=== PATIENT | male | born 2000 | race Two or more races ===

== ENCOUNTER 2020-07-02 22:44 | Inpatient (IN) | payer OTHER ==
[2020-07-02] MEDS ORDERED: SODIUM CHLORIDE 0.9% 500 ML 500 ML IV ONE (23:16)
--- NOTE | 2020-07-02 23:29 | XR ---
EXAMINATION TYPE: XR abdomen acute w cxr DATE OF EXAM: 07/02/2020 COMPARISON: NONE HISTORY: Diarrhea. Cough. TECHNIQUE: 4 views FINDINGS: There is increased density in the left lower lobe consistent with a mild pneumonia. Heart s ize is normal. There is no pleural effusion. There is no sign of intestinal obstruction or pneumoperitoneum. Fecal pattern is normal. There is no evidence of a mass. There are no pathologic calcifications over the kidneys. Bony structures are inta ct. 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 IMPRESSION: Nonacute abdomen. There is evidence for some mild pneumonia in the left lower lobe.
[2020-07-02] MEDS ORDERED: ONDANSETRON 4 MG/2 ML VIAL IVP STA (23:35)
[2020-07-03] MEDS ORDERED: ACETAMINOPHEN IV (For NPO) 1,000 MG in EMPTY BAG 1 BAG IVPB ONE
--- NOTE | 2020-07-03 | CT ---
EXAMINATION TYPE: CT brain wo con DATE OF EXAM: 07/02/2020 COMPARISON: None HISTORY: headache CT DLP: 1188.4 mGycm Automated exposure control for dose reduction was used. There is slight prominence of the temporal horns of the lateral ventricles for the patient's relative ly young age. There is no mass effect nor midline shift. There is no sign of intracranial hemorrhage. The calvarium is intact. Skull base is intact. There is incomplete pneumatization of the mastoid sin uses. IMPRESSION: Ventricles overall have normal size but there is some prominence of the temporal horns of the lateral ventricles. Clinical significance is not clear. No evidence of cerebral edema. No acute intracranial abnormality.
[2020-07-03] MEDS ORDERED: cefTRIAXone 1,000 MG VIAL (IM USE) IM STA (00:04)
[2020-07-03] MEDS ORDERED: AZITHROMYCIN 1,200 MG/30 ML BOTTLE PO ONE (00:15)
[2020-07-03] MEDS ORDERED: AZITHROMYCIN 500 MG in SODIUM CHLORIDE 0.9% 250 ML IVPB ONE ×3 (01:00)
[2020-07-03 01:05] LABS: ALT 22 U/L (4-49); AST 41 U/L (17-59); African American GFR (CKD) >90 (>60 ml/min/1.73 sqM); Albumin 4.1 g/dL (3.5-5.0); Alkaline Phosphatase 63 U/L (38-126); Anion Gap 11 mmol/L; Blood Urea Nitrogen 16 mg/dL (9-20); Calcium 8.8 mg/dL (8.4-10.2); Carbon Dioxide 25 mmol/L (22-30); Chloride 99 mmol/L (98-107); Glucose 100 mg/dL (74-99); Non-African American GFR(CKD) >90 (>60 ml/min/1.73 sqM); Potassium 4.2 mmol/L (3.5-5.1); Sodium 135 mmol/L (137-145); Total Bilirubin 0.6 mg/dL (0.2-1.3); Total Protein 7.7 g/dL (6.3-8.2)
[2020-07-03 01:09] LABS: HCT 51.9 % (39.0-53.0); HGB 16.8 gm/dL (13.0-17.5); MCHC 32.4 g/dL (31.0-37.0); MCV 92.6 fL (80.0-100.0); Mean Platelet Volume 8.2; Platelet Count 224 k/uL (150-450); RDW 13.6 % (11.5-15.5); WBC 3.9 k/uL (3.8-10.6)
[2020-07-03] MEDS ORDERED: IPRATROPIUM-ALBUTEROL 3 ML NEB INHALATION STA (01:23)
[2020-07-03] MEDS: SODIUM CHLORIDE 0.9% 1,000 ML IV SCH ×3 (01:58→16:55)
[2020-07-03 02:00] LABS: Nucleated Red Blood Cells 0 /100 WBC (0-0)
[2020-07-03 02:04] LABS: Band Neutrophils % 12 %; Lymphocytes # (M) 1.21 k/uL (1.0-4.8); Monocytes # (M) 0.47 k/uL (0-1.0); Neutrophils % (M) 46 %; Total Cells Counted 200
[2020-07-03 02:05] LABS: Anisocytosis (M) Present; Polychromasia Present
[2020-07-03 02:09] LABS: Large Platelets Present
--- NOTE | 2020-07-03 03:16 | ED ---
General Adult HPI - General Chief complaint: Nausea/Vomiting/Diarrhea Stated complaint: abd pain,headache Time Seen by Provider: 07/02/20 23:09 Source: patient, RN notes reviewed, old records reviewed Mode of arrival: ambulatory Limitations: no limitations - History of Present Illness Initial comments: 19-year-old male patient passed history of Down syndrome parents ED for evaluation nausea vomiting diarrhea headache cough for the last 3 days. Denies any fevers. Denies any other complaints. History taking otherwise limited. - Related Data Allergies Allergy/AdvReac Type Severity Reaction Status Date / Time No Known Allergies Allergy Verified 07/02/20 23:06 Review of Systems ROS Statement: Those systems with pertinent positive or pertinent negative responses have been documented in the HPI. ROS Other: All systems not noted in ROS Statement are negative. Past Medical History Past Medical History: Pneumonia Additional Past Medical History / Comment(s): Right eye fluid, down syndrome History of Any Multi-Drug Resistant Organisms: None Reported Past Surgical History: Adenoidectomy, Ear Surgery, Tonsillectomy Past Anesthesia/Blood Transfusion Reactions: No Reported Reaction Past Psychological History: No Psychological Hx Reported Smoking Status: Never smoker Past Alcohol Use History: None Reported Past Drug Use History: None Reported General Exam - General Exam Comments Initial Comments: Constitutional: NAD, Pt has pleasant affect. HEENT: NC/AT, trachea midline, neck supple, no lymphadenopathy. Posterior pharynx non erythematous, without exudates. External ears appear normal, without discharge. Mucous membranes moist. Eyes PERRLA, EOM intact. There is no scleral icterus. No pallor noted. Cardiopulmonary: RRR, no murmurs, rubs or gallops, no JVD noted. Left -sided ra les are noted. Lungs otherwise clear. No peripheral edema. Abdominal exam: Abdomen soft and non-distended. Abdomen non-tender to palpation in all 4 quadrants. Bowel sounds active in LLQ. No hepatosplenomegaly. No ecchymosis Neuro: CN II-XII intact. No nuchal rigidity. No raccon eyes, no rosenberg sign, no hemotympanum. No cervical spinal tenderness. MSK: No posterior calf tenderness bilaterally, homans sign negative bilaterally. Posterior tibialis and radial pulse +2 bilaterally. Sensation intact in upper and lower extremities. Full active ROM in upper and lower extremities, 5/5 stregnth. Limitations: no limitations Course Vital Signs 07/02/20 07/03/20 07/03/20 22:58 00:53 02:08 Temperature 99.0 F 98.8 F Pulse Rate 127 H 120 H 105 H Respiratory 18 18 Rate Blood Pressure 118/74 127/89 O2 Sat by Pulse 91 L 93 L 90 L Oximetry 07/03/20 07/03/20 07/03/20 02:09 02:14 02:28 Temperature Pulse Rate 100 100 Respiratory Rate Blood Pressure O2 Sat by Pulse 94 L Oximetry 07/03/20 02:32 Temperature Pulse Rate 100 Respiratory 17 Rate Blood Pressure 120/68 O2 Sat by Pulse 93 L Oximetry Medical Decision Making - Medical Decision Making 19-year-old male patient presents ED for evaluation nausea vomiting diarrhea cough last 3 days. Patient vital signs display mild hypoxia, distal exam is fully right-sided rales. Laboratory investigations revealed no leukocytosis. CT negative for any acute intracranial abnormality. Acute abdomen series displayed mild pneumonia left lower lobe. Patient initiated on Rocephin is administered. Color test pending will be admitted. Case discussed with Dr. James. - Lab Data Result diagrams: 07/03/20 00:42 07/03/20 00:42 Lab Results 07/03/20 07/03/20 Range/Units 00:42 00:42 WBC 3.9 (3.8-10.6) k/uL RBC 5.60 (4.30-5.90) m/uL Hgb 16.8 (13.0-17.5) gm/dL Hct 51.9 (39.0-53.0) % MCV 92.6 (80.0-100.0) fL MCH 30.0 (25.0-35.0) pg MCHC 32.4 (31.0-37.0) g/dL RDW 13.6 (11.5-15.5) % Plt Count 224 (150-450) k/uL Neutrophils % Not Reportable Neutrophils % (Manual) 46 % Band Neuts % (Manual) 12 % Lymphocytes % Not Reportable Lymphocytes % (Manual) 31 % Monocytes % Not Reportable Monocytes % (Manual) 12 % Eosinophils % Not Reportable Basophils % Not Reportable Neutrophils # Not Reportable Neutrophils # (Manual) 2.20 (1.3-7.7) k/uL Lymphocytes # Not Reportable Lymphocytes # (Manual) 1.21 (1.0-4.8) k/uL Monocytes # Not Reportable Monocytes # (Manual) 0.47 (0-1.0) k/uL Eosinophils # Not Reportable Basophils # Not Reportable Nucleated RBCs 0 (0-0) /100 WBC Manual Slide Review Performed Large Platelets Present Polychromasia Present Anisocytosis (manual) Present Sodium 135 L (137-145) mmol/L Potassium 4.2 (3.5-5.1) mmol/L Chloride 99 (98-107) mmol/L Carbon Dioxide 25 (22-30) mmol/L Anion Gap 11 mmol/L BUN 16 (9-20) mg/dL Creatinine 0.87 (0.66-1.25) mg/dL Est GFR (CKD-EPI)AfAm >90 (>60 ml/min/1.73 sqM) Est GFR (CKD-EPI)NonAf >90 (>60 ml/min/1.73 sqM) Glucose 100 H (74-99) mg/dL Calcium 8.8 (8.4-10.2) mg/dL Total Bilirubin 0.6 (0.2-1.3) mg/dL AST 41 (17-59) U/L ALT 22 (4-49) U/L Alkaline Phosphatase 63 (38-126) U/L Total Protein 7.7 (6.3-8.2) g/dL Albumin 4.1 (3.5-5.0) g/dL - EKG Data -: EKG Interpreted by Me (and Dr. James ) EKG Comments: Ventricular rate 105, WI interval 138, QRS 78, QT/QTc 318/420. Sinus tachycardia, otherwise normal EKG. No concern for acute ischemia at this time. Disposition Clinical Impression: Pneumonia, Headache Disposition: ADMITTED IP TO THIS HOSP Condition: Serious Is patient prescribed a controlled substance at d/c from ED?: No
[2020-07-03 08:01] LABS: Appearance,Urine Clear (Clear); Bilirubin,Urine Negative (Negative); Blood,Urine Small (Negative); Color,Urine Yellow; Glucose,Urine (UA) Negative (Negative); Ketones,Urine 3+ (Negative); Leukocyte Esterase,Urine Negative (Negative); Mucus,Urine Few /hpf; Nitrite,Urine Negative (Negative); Protein,Urine 2+ (Negative); RBC,Urine 1 /hpf (0-5); Specific Gravity,Urine 1.039 (1.001-1.035); Urobilinogen,Urine <2.0 mg/dL (<2.0); WBC,Urine 4 /hpf (0-5)
--- NOTE | 2020-07-03 13:05 | XR ---
EXAMINATION TYPE: XR chest 1V portable DATE OF EXAM: 07/03/2020 Comparison: 07/02/2020 Clinical History: 19-year-old male pneumonia Findings: Heart normal size. Multifocal patchy opacities are present especially in the left greater than right mid and lower lungs. Impression: Patchy left greater than right infiltrates similar to yesterday could represent multifocal pneumonia or atypical pneumonias.
[2020-07-03] MEDS ORDERED: IPRATROPIUM-ALBUTEROL 3 ML NEB INHALATION PRN (15:03)
[2020-07-03] MEDS ORDERED: FUROSEMIDE 10 MG/ML 2 ML VIAL IV STA (15:05)
[2020-07-03 15:27] LABS: C Reactive Protein 54.2 mg/L (<10.0)
--- NOTE | 2020-07-03 15:51 | HP ---
HISTORY AND PHYSICAL DATE OF SERVICE: 07/03/2020 CHIEF COMPLAINTS: Nausea, vomiting, diarrhea, pneumonia. HISTORY OF PRESENT ILLNESS: This 19-year-old gentleman with a past medical history of multiple medical problems including history of Down syndrome, history of pneumonia, history of right eye fluid, history of adenoidectomy, history of ear surgery, being followed by Dr. Jammie Aden in the outpatient setting, was noted to have initially nausea, vomiting and some diarrhea. Patient also had headache and subsequently developed chest congestion. The patient came to [facility] and was admitted for further evaluation and treatment. The initial chest x-ray showed bilateral pneumonia patch, left greater than right, and patient admitted for further evaluation. The patient unable to give any coherent history. Most of the history taken from my discussion with the family at bedside as well as review of the chart and discussions with staff. The patient is started on broad spectrum IV antibiotics. PAST MEDICAL HISTORY: History of pneumonia, history of right eye fluid, history of Down syndrome. MEDICATIONS: None. ALLERGIES: None. Family history, social history, review of systems not taken. Otherwise from the chart: No history of smoking. No alcohol intake. PHYSICAL EXAM: Patient is conscious, nonverbal. Pulse is 101. Blood pressure 107/70. Respirations 20, temperature 98.9, pulse ox 94% on 2 L. HEENT: Conjunctivae normal. NECK: No JVD. CARDIOVASCULAR: S1, S2. RESPIRATORY SYSTEM: Breath sounds diminished at the bases. Bilateral scattered rhonchi and crackles. Expiratory wheezing also present. ABDOMEN: Soft, nontender. No mass palpable. LEGS: No edema. No swelling. NERVOUS SYSTEM: Higher functions as mentioned earlier. Moves all 4 limbs. No focal motor or sensory deficits. SKIN: No ulcer, no rashes and no bleeding. JOINTS: No active deforming arthropathy. LABS: CBC within normal limits. Sodium 135. Lactic acid 2.9. ASSESSMENT: 1. Acute bilateral pneumonia possibly bronchopneumonia with sepsis present on admission. 2. Rule out Coivd-19 interstitial pneumonia. 3. Elevated lactic acid secondary to sepsis. 4. Hyponatremia. 5. History of Down syndrome. 6. Obesity with body mass index of 33. 7. History of pneumonia. 8. History of right eye fluid. 9. History of adenoidectomy. 10.History of ear surgery. 11.History of tonsillectomy. 12.FULL CODE. RECOMMENDATIONS AND DISCUSSION: This 19-year-old gentleman who presented with multiple complex medical issues, we will monitor the patient closely. We will initiate broad-spectrum IV antibiotics. I would recommend a Pulmonary and infectious Disease evaluations, bronchodilators. I would also recommend a COVID-19 testing. Prognosis guarded because of multiple complex medical issues. Further recommendations to follow. Copy forwarded to Dr. Jammie Aden, who is the primary physician. 1. Tash. ANIKA / SEPIDEHN: [id number] /
[2020-07-03] MEDS: ENOXAPARIN 40 MG/0.4 ML SYRINGE SQ SCH (16:54)
--- NOTE | 2020-07-03 17:03 | CT ---
EXAMINATION TYPE: CT chest wo con DATE OF EXAM: 07/03/2020 COMPARISON: None HISTORY: pneumonia Chest pain CT DLP: 401.8 mGycm Automated exposure control for dose reduction was used. Images obtained from the thoracic inlet to the diaphragm with no contrast. FINDINGS: There is patchy bilateral areas of airspace consolidation. This involves upper and lower lobes bilate rally. There is more extensive infiltrate in the superior segment left lower lobe. Heart size is fair ly normal. There is no pericardial effusion. There is no pleural effusion. Upper abdominal soft tissu es are intact. There is no definite hilar mass. There are some enlarged paratracheal and mediastinal lymph nodes rodney t measure up to 1.5 cm. There is no aortic aneurysm. Thoracic spine is intact. Sternum is intact. IMPRESSION: Bilateral patchy airspace infiltrates. Mild mediastinal adenopathy. Findings consistent with pneumoni a.
[2020-07-03] MEDS: IPRATROPIUM-ALBUTEROL 3 ML NEB INHALATION SCH (19:14)
[2020-07-03 19:19] LABS: INR 1.2 (<1.2)
[2020-07-03] MEDS: PANTOPRAZOLE 40 MG/10 ML VIAL IVP SCH (22:12)
[2020-07-04] MEDS: PIPERACILLIN-TAZOBACTAM 3.375 GM in SODIUM CHLORIDE 0.9% 100 ML IVPB SCH ×3 (00:34→15:54)
[2020-07-04] MEDS ORDERED: AZITHROMYCIN 500 MG in SODIUM CHLORIDE 0.9% 250 ML IVPB SCH (02:00)
[2020-07-04] MEDS: AZITHROMYCIN 500 MG in SODIUM CHLORIDE 0.9% 250 ML IVPB SCH (07:18)
[2020-07-04] MEDS: SODIUM CHLORIDE 0.9% 1,000 ML IV SCH (07:19)
[2020-07-04 07:20] LABS: HCT 48.4 % (39.0-53.0); HGB 15.8 gm/dL (13.0-17.5); MCH 30.7 pg (25.0-35.0); MCHC 32.7 g/dL (31.0-37.0); Mean Platelet Volume 8.9; Platelet Count 202 k/uL (150-450); RBC 5.16 m/uL (4.30-5.90); RDW 13.8 % (11.5-15.5); WBC 4.1 k/uL (3.8-10.6)
[2020-07-04 07:56] LABS: Band Neutrophils % 2 %; Neutrophils % (M) 37 %; Nucleated Red Blood Cells 0 /100 WBC (0-0); Total Cells Counted 100
[2020-07-04] MEDS: IPRATROPIUM-ALBUTEROL 3 ML NEB INHALATION SCH ×3 (08:30→19:46)
[2020-07-04] MEDS: ENOXAPARIN 40 MG/0.4 ML SYRINGE SQ SCH (09:08)
[2020-07-04] MEDS: PANTOPRAZOLE 40 MG/10 ML VIAL IVP SCH ×2 (09:08→21:58)
[2020-07-04 10:21] LABS: Anion Gap 14.4 mmol/L (4.00-12.00); BUN/Creat Ratio 13.33 Ratio (12.00-20.00); Calcium 8.8 mg/dL (8.7-10.3); Carbon Dioxide 26.6 mmol/L (21.6-31.8); Non-African American GFR(CKD) 121.7 (60.0-200.0); Potassium 4.6 mmol/L (3.5-5.5)
[2020-07-04] MEDS ORDERED: PROMETHAZINE 25 MG TAB PO PRN (14:29)
[2020-07-04] MEDS ORDERED: DICYCLOMINE 10 MG CAP PO PRN (16:06)
--- NOTE | 2020-07-04 16:36 | CONS ---
CONSULTATION This is a 19-year-old gentleman with Down's syndrome. The patient apparently presented with nausea, vomiting, diarrhea, abdominal pain and headache. He just was not feeling well. There was no fever or chills. He was not really having much in the way of respiratory complaints other than a nonproductive cough. He apparently was evaluated in the emergency room by one of the ER physicians and admitted with a diagnosis of pneumonia. Currently the patient is comfortable. He is not requiring any supplemental oxygen. He has not been having any complaints other than the ones already mentioned, and those are all much improved. He is having a dry nonproductive cough. The patient looks quite stable. Chest x-ray and CT scan show evidence of bilateral multifocal pneumonia. He is really not having much in the way of symptomatology. ALLERGIES: DENIED. HOME MEDICATIONS: None. CURRENT MEDICATIONS: His current hospital medications include DuoNeb Zithromax, Lovenox, Protonix, Zosyn, promethazine and sodium chloride. MEDICAL HISTORY: Multiple history includes previous episodes of pneumonia and possible underlying aspiration as well as Down's syndrome. SURGICAL HISTORY: His surgical history includes adenoidectomy, ear surgery and tonsillectomy. SOCIAL HISTORY: Negative for tobacco, alcohol or illicit drug use. FAMILY HISTORY: Not noted. No history can be obtained from the patient. I talked to the patient's mother. His major complaints, as mentioned above, included nausea, vomiting, diarrhea, headache and cough. No fever or chills. No other complaints. PHYSICAL EXAMINATION: VITAL SIGNS: Current vital signs are reviewed. His vital signs include temperature 98, heart rate 89, respiratory rate 20, blood pressure 101/70, mean 80, and room-air saturation 92% to 94%. GENERAL APPEARANCE: Appears in no acute distress. HEENT: Examination is grossly unremarkable. No supplemental oxygen. NECK: Supple. Full range of motion. No adenopathy or thyromegaly. Neck veins are flat. CARDIOVASCULAR: Examination reveals regular rhythm and rate. S1, S2 normal. Heart rate 89. No murmur. LUNGS: Lungs reveal a few scattered rhonchi. No wheezes or crackles. Breath sounds equal. Lung examination is not real impressive. ABDOMEN: Soft. Bowel sounds are heard. EXTREMITIES: Intact. No edema. SKIN: Without rash. NEUROLOGIC: Neurologic examination is difficult to assess, but apparently he is at baseline. LABS: Reviewed. White count 4.1, hemoglobin 15.8, hematocrit 48.4, platelet count 202,000. Sedimentation rate 20. PT 12. INR 1.2. D-dimer 0.4. Sodium, potassium, chloride, CO2 all normal. Anion gap 14.4. BUN and creatinine were 12 and 0.9. Glucose 76. LDH 997. C-reactive protein 54.2. Urine is negative. His COVID-19 serology is currently pending. Legionella antigen was negative. His influenza A and B were both negative. Microbiology is currently negative. A chest x-ray shows patchy bilateral infiltrates. CT scan shows infiltrates much more significantly. There is mild mediastinal adenopathy consistent with reactive adenopathy. Brain CT was negative. Acute abdominal series was also negative. Current medications are reviewed. He is currently on Zithromax, Lovenox, DuoNeb, Protonix, Zosyn, promethazine or Phenergan cough syrup, and saline IV. ASSESSMENT: 1. Bilateral pneumonia. 2. Doubt COVID-19 pneumonitis. 3. History of Down's syndrome. 4. Prior history of pneumonia. 5. Possible underlying aspiration. PLAN: The patient's Zosyn will be discontinued in favor of ceftriaxone. This patient does have community-acquired pneumonia. Await COVID-19 testing. Currently he is not receiving any supplemental oxygen. Will follow closely. Prognosis is guarded. MMODL / IJN: [id number] /
[2020-07-04] MEDS ORDERED: PROMETHAZINE HCL 6.25 MG/5 ML CUP PO PRN (21:14)
--- NOTE | 2020-07-05 01:11 | PN ---
PROGRESS NOTE DATE OF SERVICE: 07/04/2020 This 19-year-old gentleman who was admitted with bilateral pneumonia, has suspected to have aspiration pneumonia, but however, influenza is negative. COVID-19 is presumptively positive. The patient is closely monitored at this time. The chest CT showed some interstitial changes. The patient was evaluated by Dr. Adorno. Otherwise, the patient on broad IV antibiotics. Dr. Tanner will be consulted. PAST MEDICAL HISTORY: Reviewed. REVIEW OF SYSTEMS: Could not be taken because of the patient's baseline mental status changes. MEDICATIONS: Current medications are: DuoNeb, Zithromax, Rocephin, Protonix. PHYSICAL EXAMINATION: Patient is alert and oriented x1. Pulse 76, blood pressure 134/91, respirations 17, temperature 98 degrees, pulse ox 94% on 2 L. HEENT: Conjunctivae normal. NECK: No jugular venous distention. CARDIOVASCULAR: S1, S2 muffled. RESPIRATORY: Breath sounds diminished at the bases. A few scattered rhonchi and crackles. ABDOMEN: Soft, nontender. LEGS: No edema, no swelling. NERVOUS SYSTEM: No focal deficits. LABS: CBC within normal limits. Sodium 140, potassium 4.6. Otherwise, the LDH is 997. C- reactive protein is 54.2. The D-dimer is 0.4. ASSESSMENT: 1. Acute bilateral pneumonia possibly bronchopneumonia with sepsis, present on admission. 2. Possible COVID-19 interstitial pneumonia. 3. Possible aspiration pneumonia. 4. History of elevated lactic acid secondary to sepsis, present on admission. 5. Hyponatremia. 6. History of Down syndrome. 7. Possible acute gastritis, present on admission. 8. Obesity with body mass index of 33. 9. History of pneumonia. 10.History of right eye fluid. 11.History of adenoidectomy. 12.History of ear surgery. 13.History of tonsillectomy. 14.FULL CODE. RECOMMENDATIONS AND DISCUSSION: I recommend to continue current medications, continue symptomatic treatment. Otherwise continue with antibiotics, continue the bronchodilators. Otherwise, at this time I would also recommend consult Dr. Tanner for evaluation for possible remdesivir. Otherwise prognosis extremely guarded because of multiple complex medical issues. Further recommendations to follow. Closely follow with Dr. Adorno who is the manager shift. MMODL / IJN: [id number] /
[2020-07-05] MEDS: AZITHROMYCIN 500 MG in SODIUM CHLORIDE 0.9% 250 ML IVPB SCH (05:13)
[2020-07-05 06:58] LABS: HCT 48.9 % (39.0-53.0); HGB 16.2 gm/dL (13.0-17.5); MCH 31.4 pg (25.0-35.0); MCHC 33.2 g/dL (31.0-37.0); MCV 94.7 fL (80.0-100.0); Mean Platelet Volume 8.2; Platelet Count 242 k/uL (150-450); RBC 5.16 m/uL (4.30-5.90); RDW 13.5 % (11.5-15.5); WBC 4.5 k/uL (3.8-10.6)
--- NOTE | 2020-07-05 07:34 | P.CONS ---
History of Present Illness - Reason for Consult Consult date: 07/04/20 Nausea, vomiting, rule out peptic ulcer disease Requesting physician: Barney Cuello - Chief Complaint Nausea, vomiting, cough, diarrhea - History of Present Illness Of note testing is currently pending for the novel bear virus and consult was performed in conversation with the patient and his mother using the telephone, they consented to a telephone consult in the conversation was from 3:46 PM until 3:52 PM, 6 minutes in duration. The physical exam will be deferred to the primary team until the testing for the virus has been resulted. 19-year-old pleasant male with a past medical history significant for Down syndrome who presented to the hospital with a constellation of symptoms. The patient's mother reports that the patient has been suffering from nausea, vomiting and diarrhea for approximately 5 days. The patient had been complaining of associated cough and headache. The symptoms seem to be improving however the patient's status worsened again yesterday with the patient having an additional episode of nonbloody nonbilious vomitus. Diarrhea was described as multiple loose watery bowel movements with no blood or black tarry stools. The patient had CT of the chest on presentation was suggestion of bilateral pleural patchy infiltrates and possible pneumonia. No prior episodes of similar symptoms. No NSAID use, no PPI or H2 antagonist therapy at home. Other laboratory evaluation significant for WBC 4.1, hemoglobin 15.8 and platelet count of 202,000. Review of Systems REVIEW OF SYSTEMS: (Taken and discussion with the patient and his mother) CONSTITUTIONAL: Denies any fevers, chills, weight change or fatigue. CARDIOVASCULAR: Denies any chest pain, palpitations high or low blood pressures RESPIRATORY: Denies any shortness of breath, hemoptysis or cough. GENITOURINARY: No dysuria or hematuria. MUSCULOSKELETAL: No weakness reported. SKIN: Denies any new rashes or lesions, jaundice or pallor. PSYCHIATRIC: Denies any depression or anxiety. NEUROLOGY: Denies headache, denies any new focal deficits, Down syndrome/developmental delay. EARS/NOSE/THROAT: No recent hearing change, congestion, nasal discharge or sore throat. EYES: No pain in eyes, discharge or change in vision. GASTROINTESTINAL: As per HPI. Past Medical History Past Medical History: Pneumonia Additional Past Medical History / Comment(s): Right eye fluid, down syndrome History of Any Multi-Drug Resistant Organisms: None Reported Past Surgical History: Adenoidectomy, Ear Surgery, Tonsillectomy Past Anesthesia/Blood Transfusion Reactions: No Reported Reaction Past Psychological History: No Psychological Hx Reported Smoking Status: Never smoker Past Alcohol Use History: None Reported Past Drug Use History: None Reported Additional History: Past family history: Reviewed and noncontributory to current medical presentation Medications and Allergies Home Medications Medication Instructions Recorded Confirmed Type No Known Home Medications 07/03/20 07/03/20 History Allergies Allergy/AdvReac Type Severity Reaction Status Date / Time No Known Allergies Allergy Verified 07/03/20 07:49 Physical Exam Vitals: Vital Signs Temp Pulse Pulse Resp BP Pulse Ox 07/04/20 14:47 98.0 F 89 20 101/70 92 L 07/04/20 12:18 104 H 07/04/20 12:06 100 07/04/20 08:41 104 H 07/04/20 08:30 100 07/04/20 07:00 97.9 F 104 H 18 111/64 91 L 07/04/20 01:25 98.8 F 107 H 16 110/77 93 L 07/03/20 19:35 98.0 F 109 H 18 129/85 94 L 07/03/20 19:24 98 07/03/20 19:15 98 Intake and Output 07/04/20 07/04/20 07/04/20 06:59 14:59 22:59 Other: # Voids 1 1 # Bowel Movements 1 Physical exam not performed due to concerns over possible Coronavirus, we will defer physical exam to the primary team until virus testing has been resulted. Results CBC & Chem 7: 07/04/20 05:41 07/04/20 05:41 Labs: Abnormal Lab Results - Last 24 Hours (Table) 07/03/20 07/03/20 07/03/20 Range/Units 09:03 09:03 09:03 ESR 20 H (0-15) mm/hr INR 1.2 H (<1.2) Anion Gap (4.00-12.00) mmol/L Lactate Dehydrogenase 997 H (313-618) U/L C-Reactive Protein 54.2 H (<10.0) mg/L 07/04/20 Range/Units 05:41 ESR (0-15) mm/hr INR (<1.2) Anion Gap 14.40 H (4.00-12.00) mmol/L Lactate Dehydrogenase (313-618) U/L C-Reactive Protein (<10.0) mg/L Microbiology - Last 24 Hours (Table) 07/03/20 00:42 Blood Culture - Preliminary Blood No Growth after 24 hours 07/03/20 07:50 Urine Culture - Preliminary Urine,Voided CT scan - chest: report reviewed (Computed tomography scan of the chest with findings of bilateral patchy pleural infiltrates suggestive of possible pneumonia) Assessment and Plan (1) Nausea vomiting and diarrhea Narrative/Plan: 19-year-old male with a history of Down syndrome who presented with 5 days of nausea, vomiting, diarrhea, cough and headache. CT of the chest suggestive of pneumonia with bilateral pleural patchy infiltrates seen. Influenza testing was negative but testing for Covid is pending. No risk factors for peptic ulcer disease with the patient denying any chronicity of symptoms or NSAID use. Concern is for possible viral-related symptoms. Current Visit: Yes Status: Acute Code(s): R11.2 - NAUSEA WITH VOMITING, UNSPECIFIED; R19.7 - DIARRHEA, UNSPECIFIED SNOMED Code(s): 7535145 Plan: Supportive care Okay for liquid diet, advance as tolerated Continue Protonix therapy Continue Phenergan for antiemetic therapy Bentyl added as needed for abdominal cramping and pain Await results of Coronavirus testing Continue supportive care Thank you for allowing us to participate in the care of the patient
[2020-07-05] MEDS: IPRATROPIUM-ALBUTEROL 3 ML NEB INHALATION SCH ×3 (07:37→20:45)
[2020-07-05 08:53] LABS: Band Neutrophils % 2 %; Eosinophils # (M) 0.05 k/uL (0-0.7); Lymphocytes # (M) 1.89 k/uL (1.0-4.8); Monocytes # (M) 0.77 k/uL (0-1.0); Neutrophils % (M) 40 %; Nucleated Red Blood Cells 1 /100 WBC (0-0); Total Cells Counted 200
[2020-07-05 08:58] LABS: Reactive Lymphocytes Present
[2020-07-05] MEDS ORDERED: FAMOTIDINE 20 MG TAB PO SCH (09:00)
[2020-07-05 09:08] LABS: BUN/Creat Ratio 12.22 Ratio (12.00-20.00); Calcium 8.6 mg/dL (8.7-10.3); Non-African American GFR(CKD) 121.7 (60.0-200.0); Potassium 4.3 mmol/L (3.5-5.5)
[2020-07-05] MEDS: ASCORBIC ACID 500 MG TAB PO SCH (09:36)
[2020-07-05] MEDS: dexAMETHasone 4 MG TAB PO SCH (09:37)
[2020-07-05] MEDS: ENOXAPARIN 40 MG/0.4 ML SYRINGE SQ SCH (09:37)
[2020-07-05] MEDS: CHOLECALCIFEROL 400 UNIT TAB PO SCH (09:37)
[2020-07-05] MEDS: PANTOPRAZOLE 40 MG/10 ML VIAL IVP SCH ×2 (09:37→20:35)
[2020-07-05] MEDS ORDERED: REMDESIVIR (EUA) 200 MG in SODIUM CHLORIDE 0.9% 250 ML IVPB ONE (13:00)
--- NOTE | 2020-07-05 13:06 | P.PN ---
Subjective Progress Note Date: 07/05/20 Principal diagnosis: Nausea, vomiting, diarrhea, rule out ulcer disease Note is currently presumptive positive for the virus consult was performed in conversation with the patient and his mother using the telephone, they consented to consult conversation with her 10:07 AM until 10:15 AM, 8 minutes in duration. The physical exam will be deferred to the primary team. This is a 19-year-old male patient with past medical history significant for Down's syndrome who presented to the hospital with constellation of symptoms. The patient's mother reports he is been suffering from nausea, vomiting and diarrhea for approximately 5 days. There was also report of headache and ass ociated cough. The symptoms have been improving. The mother states the diarrhea has improved, the patient is only vomiting with trying to swallow his pills. The patient does have sensory problems with textures. He has been afebrile, with no acute changes through the night. Objective - Vital Signs Vital signs: Vital Signs Temp 98.6 F 07/05/20 01:25 Pulse 108 H 07/05/20 11:02 Resp 18 07/05/20 11:02 BP 112/60 07/05/20 01:25 Pulse Ox 94 L 07/05/20 01:25 Intake & Output 07/04/20 07/05/20 07/05/20 18:59 06:59 18:59 Other: # Voids 1 1 - Exam This a call exam not performed due to presumptive positive coronavirus, will defer physical exam to the primary team. - Labs CBC & Chem 7: 07/05/20 05:40 07/05/20 05:40 Labs: Abnormal Lab Results - Last 24 Hours (Table) 07/03/20 07/05/20 07/05/20 Range/Units 00:42 05:40 05:40 Nucleated RBCs 1 H (0-0) /100 WBC Calcium 8.6 L (8.7-10.3) mg/dL Coronavirus (PCR) Presumptive Positive H (Not Detected) Microbiology - Last 24 Hours (Table) 07/03/20 07:50 Urine Culture - Final Urine,Voided 07/03/20 00:42 Blood Culture - Preliminary Blood No Growth after 24 hours Assessment and Plan (1) Nausea vomiting and diarrhea Narrative/Plan: This is a 19-year-old male with a history of Down syndrome who presented to the hospital with complaints of 5 days duration of nausea, vomiting, diarrhea, cough and headache. CT of the chest is suggestive of pneumonia with bilateral pleural patchy infiltrate seen. Influenza testing was negative. Testing for Coronavirus has come back as presumptive positive. There are no risk factors for peptic ulcer disease with the patient denying any chronicity of symptoms or NSAID use. Symptoms are all likely viral related. Continue to treat symptomatically. Current Visit: Yes Status: Acute Code(s): R11.2 - NAUSEA WITH VOMITING, UNSPECIFIED; R19.7 - DIARRHEA, UNSPECIFIED SNOMED Code(s): 1768591 Plan: 1. Supportive care 2. Advance diet as tolerated 3. Continue Protonix therapy 4. Continue Phenergan as needed 5. Bentyl added as needed for abdominal cramping and pain 6. Emery virus testing results presumptive positive 7. We will sign off at this time as symptoms have improved The impression and plan of care has been dictated as directed. I performed a history and examination of this patient, discussed the same with the dictator. I agree with the dictator's note ,documented as a scribe. Any a dditional findings or plans will be noted.
--- NOTE | 2020-07-05 14:55 | P.PN ---
Subjective Progress Note Date: 07/05/20 Principal diagnosis: COVID 19 pneumonitis 19-year-old white male with the past medical history of Down syndrome who presented to the hospital on 07/04/2020 with complaints of nausea, vomiting diarrhea, abdominal pain and headache. Patient did not have any fever or chills, did not have much in the way of respiratory complaints other than a dry nonproductive cough. His chest x-ray and computed tomography scan shows evidence of bilateral multifocal pneumonia. His COVID 19 PCR came back positive for presumptive COVID. His influenza screen was negative, his LDH and CRP were elevated at 997 and 54.2 respectively, his d-dimer is 0.40, is currently on 2 L of oxygen the pulse ox 94%, mildly tachycardic, respirations are nonlabored, still has the dry nonproductive cough, he is afebrile. Patient was started on prophylactic dose of Lovenox, Pepcid, breathing treatments, he is on Phenergan syrup for the cough, we will start him Remdesivir, he is on Decadron, and vitamin C, D, and zinc supplements. Objective - Vital Signs Vital signs: Vital Signs Temp 98.6 F 07/05/20 01:25 Pulse 108 H 07/05/20 11:02 Resp 18 07/05/20 11:02 BP 112/60 07/05/20 01:25 Pulse Ox 94 L 07/05/20 01:25 Intake & Output 07/04/20 07/05/20 07/05/20 18:59 06:59 18:59 Other: # Voids 1 1 - Exam GENERAL EXAM: Alert, very pleasant, 19-year-old white male, resting comfortably in bed, his oxygen is pulse ox 94% comfortable in no apparent distress. HEAD: Normocephalic/atraumatic. EYES: Normal reaction of pupils, equal size. Conjunctiva pink, sclera white. NOSE: Clear with pink turbinates. THROAT: No erythema or exudates. NECK: No masses, no JVD, no thyroid enlargement, no adenopathy. CHEST: No chest wall deformity. Symmetrical expansion. LUNGS: Equal air entry with no crackles, wheeze, rhonchi or dullness. CVS: Regular rate and rhythm, normal S1 and S2, no gallops, no murmurs, no rubs ABDOMEN: Soft, nontender. No hepatosplenomegaly, normal bowel sounds, no guarding or rigidity. EXTREMITIES: No clubbing, no edema, no cyanosis, 2+ pulses and upper and lower extremities. MUSCULOSKELETAL: Muscle strength and tone normal. SPINE: No scoliosis or deformity SKIN: No rashes CENTRAL NERVOUS SYSTEM: Alert and oriented -3. No focal deficits, tone is n ormal in all 4 extremities. PSYCHIATRIC: Alert and oriented -3. Appropriate affect. Intact judgment and insight. - Labs CBC & Chem 7: 07/05/20 05:40 07/05/20 05:40 Labs: Abnormal Lab Results - Last 24 Hours (Table) 07/03/20 07/05/20 07/05/20 Range/Units 00:42 05:40 05:40 Nucleated RBCs 1 H (0-0) /100 WBC Calcium 8.6 L (8.7-10.3) mg/dL Coronavirus (PCR) Presumptive Positive H (Not Detected) Microbiology - Last 24 Hours (Table) 07/03/20 00:42 Blood Culture - Preliminary Blood No Growth after 48 hours 07/03/20 07:50 Urine Culture - Final Urine,Voided Assessment and Plan Plan: Assessment: #1. Acute Hypoxic respiratory failure related to COVID 19 pneumonia #2. Dry nonproductive cough, nausea, vomiting, diarrhea, abdominal pain, and headache related to COVID 19 infection #3. Elevated inflammatory markers related to Covid 19 infection #4. History of Down syndrome #5. Previous history of pneumonia Plan: Start the patient on Remdesivir, continue oral Decadron, Vitamin D, C, Zinc. Will send a pro-calcitonin level, to make the decision on antibiotics. We will follow inflammatory markers, continue monitoring the patient's febrile pattern, and dyspnea and oxygenation. I performed a history & physical examination of the patient and discussed their management with my nurse practitioner, Jessie Patel. I reviewed the nurse practitioner's note and agree with the documented findings and plan of care. Lung sounds are positive for diminished breath sounds. The findings and the imp ression was discussed with the patient. I attest to the documentation by the nurse practitioner. Time with Patient: Less than 30
--- NOTE | 2020-07-05 17:04 | P.PN ---
Subjective 19-year-old male was admitted for Covid 19 patient is clinically doing well without any oxygen. Patient also was started on remdesevir and steroids by pulmonology considering significant infiltrate in bilateral lung francis on the CAT scan. Patient is clinically doing well patient probably can be discharged tomorrow. Patient is presently not on oxygen. Patient does have history of mental retardation with Down syndrome. Patient had diarrhea on admission which resolved at this time. Review of systems: Limited because of his Down syndrome All inpatient medications were reviewed and appropriate changes in these medications as dictated in the interval history and assessment and plan. Objective - Vital Signs Vital signs: Vital Signs Temp 98.6 F 07/05/20 01:25 Pulse 108 H 07/05/20 11:02 Resp 18 07/05/20 11:02 BP 112/60 07/05/20 01:25 Pulse Ox 94 L 07/05/20 01:25 Intake & Output 07/04/20 07/05/20 07/05/20 18:59 06:59 18:59 Other: # Voids 1 1 1 - Exam PHYSICAL EXAMINATION: GENERAL: The patient is alert and unable to assess orientation, not in any acute distress. Well developed, well nourished. Down syndrome HEENT: Pupils are round and equally reacting to light. EOMI. No scleral icterus. No conjunctival pallor. Normocephalic, atraumatic. No pharyngeal erythema. No thyromegaly. CARDIOVASCULAR: S1 and S2 present. No murmurs, rubs, or gallops. PULMONARY: Chest is clear to auscultation, no wheezing or crackles. ABDOMEN: Soft, nontender, nondistended, normoactive bowel sounds. No palpable organomegaly. MUSCULOSKELETAL: No joint swelling or deformity. EXTREMITIES: No cyanosis, clubbing, or pedal edema. NEUROLOGICAL: Gross neurological examination did not reveal any focal deficits. SKIN: No rashes. - Labs CBC & Chem 7: 07/05/20 05:40 07/05/20 05:40 Labs: Abnormal Lab Results - Last 24 Hours (Table) 07/03/20 07/05/20 07/05/20 Range/Units 00:42 05:40 05:40 Nucleated RBCs 1 H (0-0) /100 WBC Calcium 8.6 L (8.7-10.3) mg/dL Coronavirus (PCR) Presumptive Positive H (Not Detected) Microbiology - Last 24 Hours (Table) 07/03/20 00:42 Blood Culture - Preliminary Blood No Growth after 48 hours 07/03/20 07:50 Urine Culture - Final Urine,Voided Assessment and Plan Plan: Sepsis secondary to COVID 19 pneumonia presently not requiring any oxygen. will be continued on above-mentioned medications possibly of discharge tomorrow. Patient was also started on Rocephin and azithromycin patient doesn't have any lobar pneumonia for any bronchogram Rocephin will be discontinued also azithromycin will be continued because of his its anti-inflammatory properties. -diarrhea secondary to Covid 19 -Mild sinus tachycardia - Down syndrome
[2020-07-05] MEDS: FAMOTIDINE 20 MG/2 ML VIAL IV SCH (20:35)
[2020-07-05] MEDS ORDERED: MELATONIN 5 MG TABLET PO SCH (21:00)
[2020-07-05] MEDS: SODIUM CHLORIDE 0.9% 1,000 ML IV SCH (22:14)
--- NOTE | 2020-07-05 22:47 | P.CONS ---
History of Present Illness - Reason for Consult Consult date: 07/05/20 Covid 19 Requesting physician: Barney Cuello - Chief Complaint Nausea vomiting diarrhea x 3 days - History of Present Illness Patient is a 19 male with a past medical history significant for Down syndrome the patient has been brought into the ER by mother for evaluation of nausea vomiting and diarrhea along with mild cough that has been going on for about 3 days to the hospital. No clear history of any fever or chills and mother mention the patient has been mostly at home and not exposed to anybody who may have been sick and the patient mother was doing well with no symptoms, on arrival to the area the patient has been afebrile and no fever has been recorded patient did have occasional hypoxemia with O2 sats in 91 %, patient did have a normal white count and no lymphopenia patient did have abnormal liver enzymes and LDH and CRP were elevated, patient did have a chest x-ray which was patchy left greater than right infiltrate patient did have a covid 19 testing which came back presented positive last night infectious disease was consulted for further management patient has been evaluated by pulmonary this morning and the patient has been started on Remdisivir most of the information has been obtained on review the chart and talking to the mother as the patient himself is unable to void any history Review of Systems Positive points has been mentioned in HPI complete review could not be obtained because of his underlying mental status Past Medical History Past Medical History: Pneumonia Additional Past Medical History / Comment(s): Right eye fluid, down syndrome History of Any Multi-Drug Resistant Organisms: None Reported Past Surgical History: Adenoidectomy, Ear Surgery, Tonsillectomy Past Anesthesia/Blood Transfusion Reactions: No Reported Reaction Past Psychological History: No Psychological Hx Reported Smoking Status: Never smoker Past Alcohol Use History: None Reported Past Drug Use History: None Reported Medications and Allergies Home Medications Medication Instructions Recorded Confirmed Type No Known Home Medications 07/03/20 07/03/20 History Allergies Allergy/AdvReac Type Severity Reaction Status Date / Time No Known Allergies Allergy Verified 07/03/20 07:49 Physical Exam Vitals: Vital Signs Temp Pulse Pulse Resp BP Pulse Ox 07/05/20 11:02 108 H 18 07/05/20 10:54 108 H 20 07/05/20 01:25 98.6 F 86 15 112/60 94 L 07/04/20 23:20 18 07/04/20 19:57 90 18 07/04/20 19:48 90 18 94 L 07/04/20 19:45 98.0 F 76 17 134/91 94 L 07/04/20 14:47 98.0 F 89 20 101/70 92 L Intake and Output 07/04/20 07/05/20 07/05/20 22:59 06:59 14:59 Other: # Voids 1 1 GENERAL DESCRIPTION: Middle-aged male lying in bed, no distress. No tachypnea or accessory muscle of respiration use. HEENT: Shows Pallor , no scleral icterus. Oral mucous membrane is dry. No pharyngeal erythema or thrush NECK: Trachea central, no thyromegaly. LUNGS: Unlabored breathing. Decreased breath sound at the base. No wheeze or crackle. HEART: S1, S2, regular rate and rhythm. No loud murmur ABDOMEN: Soft, no tenderness , guarding or rigidity, no organomegaly EXTREMITIES: No edema of feet. SKIN: No rash, no masses palpable. NEUROLOGICAL: The patient is awake, orientation could not be determined because of underlying Down syndrome. Results CBC & Chem 7: 07/05/20 05:40 07/05/20 05:40 Labs: Abnormal Lab Results - Last 24 Hours (Table) 07/03/20 07/05/20 07/05/20 Range/Units 00:42 05:40 05:40 Nucleated RBCs 1 H (0-0) /100 WBC Calcium 8.6 L (8.7-10.3) mg/dL Coronavirus (PCR) Presumptive Positive H (Not Detected) Microbiology - Last 24 Hours (Table) 07/03/20 00:42 Blood Culture - Preliminary Blood No Growth after 48 hours 07/03/20 07:50 Urine Culture - Final Urine,Voided Assessment and Plan Assessment: 1- patient presented to hospital with predominantly GI symptoms of nausea vomiting and diarrhea This patient did have high-grade fever or any lymphopenia liver enzymes has been normal but did have elevated CRP and LDH and a chest x- ray did shows patchy left greater than right infiltrate with concern for atypical pneumonia with a nasopharyngoscope coming back positive for acute Covid 19 viral pneumonia with slight atypical presentation (1) Pneumonia due to COVID-19 virus Current Visit: Yes Status: Acute Code(s): U07.1 - COVID-19; J12.89 - OTHER VIRAL PNEUMONIA SNOMED Code(s): [id number] Plan: 1- patient has been started on Remdisivir , daily continue along with Lovenox a nd dexamethasone 2-droplet isolation and respiratory support 3-we will check inflammatory markers and a chest x-ray in the morning We will follow on clinical condition and cultures to further adjust medication if needed Thank you for this consultation will follow this patient with you Time with Patient: Greater than 30
[2020-07-06 02:30] VITALS: RESP 17
[2020-07-06] MEDS: AZITHROMYCIN 500 MG in SODIUM CHLORIDE 0.9% 250 ML IVPB SCH (05:05)
[2020-07-06 07:17] LABS: Mycoplasma IgG Antibody (EIA) 2.52 INDEX (<=0.90); Mycoplasma IgM Antibody 1.42 INDEX (<=0.90)
[2020-07-06] MEDS: IPRATROPIUM-ALBUTEROL 3 ML NEB INHALATION SCH ×2 (07:18→12:06)
[2020-07-06] MEDS: dexAMETHasone 4 MG TAB PO SCH (08:14)
[2020-07-06] MEDS: PANTOPRAZOLE 40 MG/10 ML VIAL IVP SCH (08:14)
[2020-07-06] MEDS: CHOLECALCIFEROL 400 UNIT TAB PO SCH (08:14)
[2020-07-06] MEDS: ASCORBIC ACID 500 MG TAB PO SCH (08:14)
[2020-07-06] MEDS: ENOXAPARIN 40 MG/0.4 ML SYRINGE SQ SCH (08:14)
[2020-07-06] MEDS: FAMOTIDINE 20 MG/2 ML VIAL IV SCH (08:14)
--- NOTE | 2020-07-06 08:16 | P.DS ---
Providers Date of admission: 07/04/20 10:32 Attending physician: Barney Cuello Consults: 07/03/20 15:04 Consult Physician Routine Consulting Provider: Albin Magaña Consult Reason/Comments: pneumonia Do you want consulting provider notified?: Yes 07/04/20 22:05 Consult Physician Routine Consulting Provider: Sandra Tanner Consult Reason/Comments: covid?? remdesivir?? please perfectserve Do you want consulting provider notified?: Yes Primary care physician: [facility] Course: 19-year-old male was admitted for Covid 19 patient is clinically doing well without any oxygen. Patient also was started on remdesevir and steroids by pulmonology considering significant infiltrate in bilateral lung francis on the CAT scan. Patient is clinically doing well patient probably can be discharged tomorrow. Patient is presently not on oxygen. Patient does have history of mental retardation with Down syndrome. Patient had diarrhea on admission which resolved at this time. 07/06/2020 patient clinically looks really well patient has some improvement in the chest x-ray infiltrate. Pro-calcitonin levels are not available yet. Patient other inflammatory markers are bit elevated. If cleared by pulmonary patient will be discharged today patient was cleared by infectious disease. Patient is afebrile. Patient has elevated IgG and IgM antibodies for mycoplasma, patient was on azithromycin which will be switched to levofloxacin and patient will be discharged on 4 days of steroids and 7 days of levofloxacin. Patient diarrhea resolved. Patient's Covid 19 came back as presumptive positive unsure from that lab testing patient has coronavirus. PHYSICAL EXAMINATION: GENERAL: The patient is alert and unable to assess orientation, not in any acute distress. Well developed, well nourished. Down syndrome HEENT: Pupils are round and equally reacting to light. EOMI. No scleral icterus. No conjunctival pallor. Normocephalic, atraumatic. No pharyngeal erythema. No thyromegaly. CARDIOVASCULAR: S1 and S2 present. No murmurs, rubs, or gallops. PULMONARY: Chest is clear to auscultation, no wheezing or crackles. ABDOMEN: Soft, nontender, nondistended, normoactive bowel sounds. No palpable organomegaly. MUSCULOSKELETAL: No joint swelling or deformity. EXTREMITIES: No cyanosis, clubbing, or pedal edema. NEUROLOGICAL: Gross neurological examination did not reveal any focal deficits. SKIN: No rashes. Assessment and Plan Plan: Sepsis secondary to mycoplasma pneumonia, possibility of COVID 19 pneumonia not be ruled out presently not requiring any oxygen. She will be discharged on levofloxacin for 7 days. -diarrhea secondary to viral pneumonia -Mild sinus tachycardia: Secondary to infection and resolved - Down syndrome Patient Condition at Discharge: Serious Plan - Discharge Summary Discharge Rx Participant: No New Discharge Prescriptions: New Dicyclomine [Bentyl] 10 mg PO TID PRN #30 cap PRN Reason: Dyspepsia dexAMETHasone [Hexadrol] 4 mg PO DAILY #4 tab Levofloxacin [Levaquin] 500 mg PO DAILY 7 Days #7 tab Famotidine [Pepcid] 20 mg PO BID #30 tablet Discharge Medication List Dicyclomine [Bentyl] 10 mg PO TID PRN #30 cap 07/06/20 [Rx] Famotidine [Pepcid] 20 mg PO BID #30 tablet 07/06/20 [Rx] Levofloxacin [Levaquin] 500 mg PO DAILY 7 Days #7 tab 07/06/20 [Rx] dexAMETHasone [Hexadrol] 4 mg PO DAILY #4 tab 07/06/20 [Rx] Follow up Appointment(s)/Referral(s): Lexx Mckeon MD [REFERRING] - 1 Week Sandra Tanner MD [STAFF PHYSICIAN] - 1 Week Patient Instructions/Handouts: Viral Pneumonia (DC) Discharge Disposition: HOME SELF-CARE
--- NOTE | 2020-07-06 08:53 | XR ---
EXAMINATION TYPE: XR chest 1V portable DATE OF EXAM: 07/06/2020 COMPARISON: Prior chest x-ray 07/03/2020 HISTORY: Pneumonia TECHNIQUE: Single frontal view of the chest is obtained. FINDINGS: There is an azygos lobe present. Heart size is stable. Lung volumes are low. Patchy increa sed density within the lungs is again seen. IMPRESSION: Correlate for pneumonia. Follow-up recommended.
[2020-07-06 08:56] VITALS: BP 110/80; PULSE 87; TEMP 98
[2020-07-06] MEDS ORDERED: ALBUTEROL HFA INHALER INHALATION SCH (13:00)
[2020-07-06] MEDS ORDERED: REMDESIVIR (EUA) 100 MG in SODIUM CHLORIDE 0.9% 250 ML IVPB SCH (13:00)
--- NOTE | 2020-07-06 13:24 | P.PN ---
Subjective Progress Note Date: 07/06/20 Principal diagnosis: COVID 19 pneumonitis 19-year-old white male with the past medical history of Down syndrome who presented to the hospital on 07/04/2020 with complaints of nausea, vomiting diarrhea, abdominal pain and headache. Patient did not have any fever or chills, did not have much in the way of respiratory complaints other than a dry nonproductive cough. His chest x-ray and computed tomography scan shows evidence of bilateral multifocal pneumonia. His COVID 19 PCR came back positive for presumptive COVID. His influenza screen was negative, his LDH and CRP were elevated at 997 and 54.2 respectively, his d-dimer is 0.40, is currently on 2 L of oxygen the pulse ox 94%, mildly tachycardic, respirations are nonlabored, still has the dry nonproductive cough, he is afebrile. Patient was started on prophylactic dose of Lovenox, Pepcid, breathing treatments, he is on Phenergan syrup for the cough, we will start him Remdesivir, he is on Decadron, and vitamin C, D, and zinc supplements. On 07/06/2020 patient seen in follow-up on a general medical surgical floor. He is resting quietly in bed, appears to be in no acute distress. Room air pulse ox of 93%, he's been afebrile, vital signs are stable, no cough or congestion, no acute events overnight, not on any supplemental oxygen. No nausea vomiting or diarrhea. CBC was reviewed, unremarkable, d-dimer 0.40, electrolytes and renal profile were within normal limits. No abdominal pain. Patient continues on azithromycin, oral Decadron, breathing treatments, Lovenox, patient is on her second day of Remdesivir. Follow-up inflammatory markers are pending Objective - Vital Signs Vital signs: Vital Signs Temp 98 F 07/06/20 07:00 Pulse 100 07/06/20 07:26 Resp 17 07/06/20 00:55 BP 110/80 07/06/20 07:00 Pulse Ox 93 L 07/06/20 07:00 Intake & Output 07/05/20 07/06/20 07/06/20 18:59 06:59 18:59 Other: # Voids 1 2 - Exam GENERAL EXAM: Alert, very pleasant, 19-year-old white male, resting comfortably in bed, his oxygen is pulse ox 93% on room air comfortable in no apparent distress. HEAD: Normocephalic/atraumatic. EYES: Normal reaction of pupils, equal size. Conjunctiva pink, sclera white. NOSE: Clear with pink turbinates. THROAT: No erythema or exudates. NECK: No masses, no JVD, no thyroid enlargement, no adenopathy. CHEST: No chest wall deformity. Symmetrical expansion. LUNGS: Equal air entry with no crackles, wheeze, rhonchi or dullness. CVS: Regular rate and rhythm, normal S1 and S2, no gallops, no murmurs, no rubs ABDOMEN: Soft, nontender. No hepatosplenomegaly, normal bowel sounds, no guarding or rigidity. EXTREMITIES: No clubbing, no edema, no cyanosis, 2+ pulses and upper and lower extremities. MUSCULOSKELETAL: Muscle strength and tone normal. SPINE: No scoliosis or deformity SKIN: No rashes CENTRAL NERVOUS SYSTEM: Alert and oriented -3. No focal deficits, tone is normal in all 4 extremities. PSYCHIATRIC: Alert and oriented -3. Appropriate affect. Intact judgment and insight. - Labs CBC & Chem 7: 07/05/20 05:40 07/05/20 05:40 Labs: Abnormal Lab Results - Last 24 Hours (Table) 07/03/20 07/03/20 Range/Units 00:42 00:42 Coronavirus (PCR) Presumptive Positive H (Not Detected) Mycoplasma pneumon IgG 2.52 H (<=0.90) INDEX Mycoplasma pneumon IgM 1.42 H (<=0.90) INDEX Microbiology - Last 24 Hours (Table) 07/03/20 00:42 Blood Culture - Preliminary Blood No Growth after 72 hours Assessment and Plan Plan: Assessment: #1. Acute Hypoxic respiratory failure related to COVID 19 pneumonia, improved #2. Dry nonproductive cough, nausea, vomiting, diarrhea, abdominal pain, and headache related to COVID 19 infection, and the symptoms have improved #3. Elevated inflammatory markers related to Covid 19 infection, follow-up markers are pending for today #4. History of Down syndrome #5. Previous history of pneumonia Plan: Obtain follow-up inflammatory markers, continue current treatment, patient is afebrile. Patient is receiving Remdesivir, he is on day 2 of treatment. We recommend patient finishes the Remdesivir treatment unless other arrangements can be made for him to finish Remdesivir on outpatient basis. I performed a history & physical examination of the patient and discussed their management with my nurse practitioner, Jessie Patel. I reviewed the nurse practitioner's note and agree with the documented findings and plan of care. Lung sounds are positive for diminished breath sounds. The findings and the impression was discussed with the patient. I attest to the documentation by the nurse practitioner. Time with Patient: Less than 30
[2020-07-06 15:52] LABS: ALT 27 U/L (4-49); AST 42 U/L (17-59); African American GFR (CKD) >90 (>60 ml/min/1.73 sqM); Albumin 3.5 g/dL (3.5-5.0); Alkaline Phosphatase 45 U/L (38-126); Anion Gap 9 mmol/L; Blood Urea Nitrogen 16 mg/dL (9-20); Calcium 8.4 mg/dL (8.4-10.2); Carbon Dioxide 23 mmol/L (22-30); Chloride 110 mmol/L (98-107); Globulin 3.4 g/dL; Glucose 111 mg/dL (74-99); LDH 914 U/L (313-618); Non-African American GFR(CKD) >90 (>60 ml/min/1.73 sqM); Potassium 5.2 mmol/L (3.5-5.1); Sodium 142 mmol/L (137-145); Total Bilirubin 0.7 mg/dL (0.2-1.3); Total Protein 6.9 g/dL (6.3-8.2)
== END 2020-07-06 16:18 | disposition home or self-care (01) | DRG 871 ==
LOC: EC 22:44 → SUPCPDRO 22:44 → 4SSUR 07-03 02:00 → OBSVTOIN 07-04 10:32
PROVIDERS: ADMIT Hospitalist; ATTEND Hospitalist
DX: A41.89 Other specified sepsis (principal); U07.1 COVID-19; J12.89 Other viral pneumonia; J96.01 Acute respiratory failure with hypoxia; J15.7 Pneumonia due to Mycoplasma pneumoniae; E87.1 Hypo-osmolality and hyponatremia; E66.9 Obesity, unspecified; D72.810 Lymphocytopenia; R00.0 Tachycardia, unspecified; F79 Unspecified intellectual disabilities; Q90.9 Down syndrome, unspecified; Z87.01 Personal history of pneumonia (recurrent); Z90.89 Acquired absence of other organs; Z98.890 Other specified postprocedural states; Z68.33 Body mass index [BMI] 33.0-33.9, adult
CPT/HCPCS: 36415; 70450; 71045; 71250; 74022; 80048; 80053; 81001; 83605; 83615; 83880; 84145; 85025; 85379; 85610; 85652; 86140; 86738; 87040; 87086; 87449; 87502; 93005; 94640; 94760; 96365; 96367; 96368; 96375; 99285

== ENCOUNTER 2023-07-14 11:28 | Emergency (ER) | payer OTHER ==
[2023-07-14 11:47] VITALS: RESP 18
[2023-07-14] MEDS ORDERED: IBUPROFEN ORAL SUSP 100 MG/5 ML CUP PO STA (11:51)
--- NOTE | 2023-07-14 12:40 | ED ---
General Adult HPI - General Chief complaint: Extremity Injury, Upper Stated complaint: left shoulder pain Time Seen by Provider: 07/14/23 11:30 Source: patient, family, RN notes reviewed, old records reviewed Mode of arrival: wheelchair Limitations: no limitations - History of Present Illness Initial comments: Patient is a 22-year-old male with past medical history remarkable for Down syndrome is brought in by his parents over concern for left shoulder injury. Patient has been grabbing his left shoulder this morning. No other obvious complaints. No injury. Appears to be in pain. Due to patient's underlying Down syndrome, difficult to obtain accurate history or evaluation. No obvious injuries or traumatic event. Patient otherwise has been acting normally. Moving the shoulder. Intermittently grabbing it. His no other acute complaints. No cardiac history for the patient. Presents for further evaluation at this time. - Related Data Previous Rx's Medication Instructions Recorded Dicyclomine [Bentyl] 10 mg PO TID PRN #30 cap 07/06/20 Famotidine [Pepcid] 20 mg PO BID #30 tablet 07/06/20 dexAMETHasone ORAL [Hexadrol] 4 mg PO DAILY #4 tab 07/06/20 levoFLOXacin [Levaquin] 500 mg PO DAILY 7 Days #7 tab 07/06/20 Allergies Allergy/AdvReac Type Severity Reaction Status Date / Time No Known Allergies Allergy Verified 07/14/23 11:34 Review of Systems ROS Statement: Those systems with pertinent positive or pertinent negative responses have been documented in the HPI. ROS Other: All systems not noted in ROS Statement are negative. Past Medical History Past Medical History: Pneumonia Additional Past Medical History / Comment(s): Right eye fluid, down syndrome History of Any Multi-Drug Resistant Organisms: None Reported Past Surgical History: Adenoidectomy, Ear Surgery, Tonsillectomy Past Anesthesia/Blood Transfusion Reactions: No Reported Reaction Past Psychological History: No Psychological Hx Reported Smoking Status: Never smoker Past Alcohol Use History: None Reported Past Drug Use History: None Reported General Exam - General Exam Comments Initial Comments: General: Appears in no acute distress. HEAD: Normal with no signs of head trauma. EYES: EOMI ENT: Hearing grossly intact, normal oropharynx. RESPIRATORY: Clear breath sounds bilaterally. No wheezes, rales, or rhonchi. C/V: Regular rate and rhythm. S1 and S2 auscultated, peripheral pulses 2+ and intact throughout ABD: Abd is soft, nontender, nondistended EXT: Normal range of motion, no obvious deformity. Minimal to no pain and left shoulder on palpation. Patient tends to point towards his clavicle. SKIN: No rashes or lesions observed on exposed skin. NEURO: Alert and oriented. Limitations: no limitations Course Vital Signs 07/14/23 11:34 Temperature 97.6 F Pulse Rate 92 Respiratory 18 Rate Blood Pressure 140/98 O2 Sat by Pulse 95 Oximetry Medical Decision Making - Medical Decision Making Was pt. sent in by a medical professional or institution (, PA, DURAL MECHANIC, urgent care, hospital, or senior living...) When possible be specific @ -No Did you speak to anyone other than the patient for history (EMS, parent, family, police, friend...)? What history was obtained from this source @ -Patient's parents were at bedside at the primary historians for the patient. Did you review nursing and triage notes (agree or disagree)? Why? @ -I reviewed and agree with nursing and triage notes Were old charts reviewed (outside hosp., previous admission, EMS record, old EKG, old radiological studies, urgent care reports/EKG's, senior living records)? Report findings @ -No old charts were reviewed Differential Diagnosis (chest pain, altered mental status, abdominal pain women, abdominal pain men, vaginal bleeding, weakness, fever, dyspnea, syncope, headac he, dizziness, GI bleed, back pain, seizure, CVA, palpatations, mental health, musculoskeletal)? @ -Differential Musculoskeletal Muscular strain, contusion, ligament sprain, fracture, arthritis, septic arthritis, bursitis, cellulitis, muscle spasm, nerve compression, DVT, arterial occlusion, herpes zoster, electrolyte abnormality, tumor.... This is not meant to be in all inclusive list EKG interpreted by me (3pts min.). @ -As above X-rays interpreted by me (1pt min.). @ -X-rays of the left clavicle and shoulder are unremarkable. No obvious traumatic injury or fracture. CT interpreted by me (1pt min.). @ -None done U/S interpreted by me (1pt. min.). @ -None done What testing was considered but not performed or refused? (CT, X-rays, U/S, labs)? Why? @ -None What meds were considered but not given or refused? Why? @ -None Did you discuss the management of the patient with other professionals (professionals i.e. , PA, DURAL MECHANIC, lab, RT, psych nurse, social service coordinator, program manager rn, teacher, diplomatic officer, case packer)? Give summary @ -No Was smoking cessation discussed for >3mins.? @ -No Was critical care preformed (if so, how long)? @ -No Were there social determinants of health that impacted care today? How? (Ho melessness, low income, unemployed, alcoholism, drug addiction, transportation, low edu. Level, literacy, decrease access to med. care, half-way, rehab)? @ -No Was there de-escalation of care discussed even if they declined (Discuss DNR or withdrawal of care, Hospice)? DNR status @ -No What co-morbidities impacted this encounter? (DM, HTN, Smoking, COPD, CAD, Cancer, CVA, ARF, Chemo, Hep., AIDS, mental health diagnosis, sleep apnea, morbid obesity)? @ -None Was patient admitted / discharged? Hospital course, mention meds given and route, prescriptions, significant lab abnormalities, going to OR and other pertinent info. @ -Based on the patient's presentation and physical exam, presents emergency department for left shoulder pain. We will obtain x-rays as well as screening EKG. Patient's parents were in agreement this plan. We will also administer a dose of oral Motrin. Vital signs within acceptable limits. He appears to be in no acute distress at this time. EKG shows no signs of acute ischemia. Imaging unremarkable. On reevaluation, patient remains asymptomatic. I believe it is safe to be discharged home. Strict return precautions discussed. Recommended following up PCP. Patient patient's parents in agreement this plan. I instructed the patient to follow up with their PCP in the next 1-3 days. I explained that the patient should return to the emergency department if they experience any worsening symptoms. Strict return precautions were discussed with the patient. The patient expressed understanding of these instructions. I answered all questions that the patient had. The patient was discharged home in good condition with their prescriptions and follow up information. Undiagnosed new problem with uncertain prognosis? @ -No Drug Therapy requiring intensive monitoring for toxicity (Heparin, Nitro, Insulin, Cardizem)? @ -No Were any procedures done? @ -No Diagnosis/symptom? @ -Atraumatic Left shoulder pain Acute, or Chronic, or Acute on Chronic? @ -Acute Uncomplicated (without systemic symptoms) or Complicated (systemic symptoms)? @ -Uncomplicated Side effects of treatment? @ -No Exacerbation, Progression, or Severe Exacerbation? @ -No Poses a threat to life or bodily function? How? (Chest pain, [place], [place], pneumonia, PE, COPD, DKA, ARF, appy, cholecystitis, CVA, Diverticulitis, Homicidal, Suicidal, threat to staff... and all critical care pts) @ -No - EKG Data -: EKG Interpreted by Me EKG Comments: 12-lead Electrocardiogram Interpretation Note EKG was reviewed and interpreted by myself. 12-lead ECG performed at 1218 is interpreted by me as revealing normal sinus rhythm at a rate of 92 beats per minute. Henderson is normal. ND interval is 141 ms, QRS duration is 90 ms, QTc is 375 ms.. There were no ST or T wave abnormalities to suggest myocardial ischemia or injury. R wave progression across the precordium was satisfactory. By my interpretation this EKG is non-diagnostic for acute ischemia. Disposition Clinical Impression: Left shoulder strain Disposition: HOME SELF-CARE Condition: Good Instructions (If sedation given, give patient instructions): Shoulder Sprain (ED) Is patient prescribed a controlled substance at d/c from ED?: No Referrals: Jammie Aden MD [Primary Care Provider] - 1-2 days Time of Disposition: 13:30
--- NOTE | 2023-07-14 13:23 | XR ---
EXAMINATION TYPE: XR shoulder limited LT DATE OF EXAM: 07/14/2023 12:15 PM CLINICAL INDICATION:Male, 22 years old with history of pain. atraumatic; [facility] COMPARISON: None TECHNIQUE: 2 views left shoulder FINDINGS: No evidence of acute osseous pathology, joint dislocation, or significant soft tissue swelling. The r emaining portions of the visualized chest are unremarkable. IMPRESSION: No evidence of fracture or dislocation.
--- NOTE | 2023-07-14 13:25 | XR ---
EXAMINATION TYPE: XR clavicle LT DATE OF EXAM: 07/14/2023 12:15 PM CLINICAL INDICATION:Male, 22 years old with history of pain. atraumatic; [facility] COMPARISON: None TECHNIQUE: AP and cephalic tilt views were obtained of the left clavicle. FINDINGS: Clavicle appears intact and normally aligned. No acute fracture or disruption of the AC joint is seen . No significant degenerative changes. Medial clavicle/sternoclavicular joint not well evaluated by p slim film examination. Unremarkable soft tissues. No radiopaque foreign body is seen. IMPRESSION: No acute abnormality of the left clavicle.
[2023-07-14 13:54] VITALS: BP 138/90; PULSE 84; TEMP 97.8
== END 2023-07-14 13:40 | disposition home or self-care (01) ==
LOC: EC 11:28
DX: S46.912A Strain of unspecified muscle, fascia and tendon at shoulder and upper arm level, left arm, initial encounter (principal); X58.XXXA Exposure to other specified factors, initial encounter
CPT/HCPCS: 99283